=== PATIENT | male | born 1985 | race Caucasian/White ===

== ENCOUNTER 2022-01-09 19:50 | Emergency (ER) | payer SELFPAY ==
[~2022-01-09] VITALS: Ht 175.3 cm; Wt 74.8 kg
[2022-01-09 19:55] VITALS: BP 123/73
--- NOTE | 2022-01-09 19:55 | NUR ---
PT IN CHAIR B
[2022-01-09] MEDS ORDERED: IBUPROFEN 600 MG TAB PO ONE (21:10)
--- NOTE | 2022-01-09 21:27 | NUR ---
PT TAKEN TO XRAY
[2022-01-09 22:10] VITALS: BP 123/73
--- NOTE | 2022-01-09 22:10 | NUR ---
Patient discharged with v/s stable. Written and verbal after care instructions given and explained. Patient verbalized understanding. Patient in custody. ID band removed. All questions addressed prior to discharge. Advised to follow up with PMD.
== END 2022-01-09 22:10 ==
LOC: MED 19:50
DX: R07.89 Other chest pain (principal); F41.9 Anxiety disorder, unspecified; F17.210 Nicotine dependence, cigarettes, uncomplicated; Z02.89 Encounter for other administrative examinations; Z71.6 Tobacco abuse counseling
CPT/HCPCS: 71045; 82948; 93005; 99285